=== PATIENT | female | born 1930 | race Caucasian/White ===

== ENCOUNTER 2018-11-15 06:43 | Day surgery (SDC) | payer MEDICARE, OTHER ==
[~2018-11-15] VITALS: Ht 162.6 cm; Wt 66.0 kg
--- NOTE | 2018-11-15 07:50 | NUR ---
11/15/18 0750 Velma Mcknight 2 IV ATTEMPTS BY DIONICIO, 1ST IN L AC INFILTRATED, 2ND IN L HAND WAS SUCCESSFUL
[2018-11-15] MEDS ORDERED: Zocor20 MG PO (07:53)
[2018-11-15] MEDS ORDERED: DIGOX125 MCG (07:53)
[2018-11-15] MEDS ORDERED: ASPI81CH PO (07:53)
[2018-11-15] MEDS ORDERED: WARF5 (07:53)
[2018-11-15] MEDS ORDERED: Carvedilol12.5 MG PO (07:54)
[2018-11-15] MEDS ORDERED: FURO20 PO (07:54)
[2018-11-15] MEDS ORDERED: LISI5 PO (07:54)
[2018-11-15] MEDS ORDERED: FOLI1 PO (07:55)
[2018-11-15] MEDS ORDERED: CARB200 PO (07:55)
[2018-11-15] MEDS ORDERED: POTCHL20ER (07:55)
[2018-11-15] MEDS ORDERED: Coq-10100 MG PO (07:56)
[2018-11-15] MEDS ORDERED: NITR.4SL PO (07:56)
== END 2018-11-15 10:30 | disposition home or self-care (01) ==
LOC: ORSCSDS 06:43
PROVIDERS: Ophthalmology
PROC: 08RJ3JZ Replacement of Right Lens with Synthetic Substitute, Percutaneous Approach (ICD-10-PCS; principal; 2018-11-15 08:30)
PROC: 08B43ZZ Excision of Right Vitreous, Percutaneous Approach (ICD-10-PCS; principal; 2018-11-15 08:30)
DX: H25.11 Age-related nuclear cataract, right eye (principal); I10 Essential (primary) hypertension; Z79.899 Other long term (current) drug therapy; Z79.82 Long term (current) use of aspirin
CPT/HCPCS: J2001; J2250; J3010; J3301; J7120; V2630

== ENCOUNTER 2019-12-12 08:37 | Day surgery (SDC) | payer MEDICARE, OTHER ==
[~2019-12-12] VITALS: Ht 162.6 cm; Wt 66.1 kg
[~2019-12-12 08:37] MED LIST: ASPI81CH PO; CARB200 PO; Carvedilol12.5 MG PO; Coq-10100 MG PO; DIGOX125 MCG; FOLI1 PO; FURO20 PO; LISI5 PO; NITR.4SL PO; POTCHL20ER; WARF5; Zocor20 MG PO
== END 2019-12-12 11:15 | disposition home or self-care (01) ==
LOC: ORSCSDS 08:37
PROVIDERS: Ophthalmology
PROC: 08RK3JZ Replacement of Left Lens with Synthetic Substitute, Percutaneous Approach (ICD-10-PCS; principal; 2019-12-12 10:00)
DX: H25.12 Age-related nuclear cataract, left eye (principal); I10 Essential (primary) hypertension; E78.5 Hyperlipidemia, unspecified; I50.9 Heart failure, unspecified; Z79.899 Other long term (current) drug therapy; Z79.01 Long term (current) use of anticoagulants; Z79.82 Long term (current) use of aspirin
CPT/HCPCS: J2001; J2250; J3010; J3301; J7040; L8610; V2632

== ENCOUNTER → 2020-11-29 | Outpatient (CLI) | payer MEDICARE, OTHER | END | disposition home or self-care (01) | LOC: OLS 09:18 → LAB SHORT 09:18 | DX: D68.59 Other primary thrombophilia (principal) | CPT/HCPCS: 36416; 85610 ==